=== PATIENT | female | born 1985 | race Caucasian/White ===

== ENCOUNTER 2021-04-04 07:32 | Day surgery (SDC) | payer BC ==
[~2021-04-04 07:32] MED LIST: Glycopyrrolate 0.2 MG/ML SDV ONE; Ketorolac 30 MG/ML SDV ONE; Lidocaine 2% 5 ML SDV ONE; Midazolam 1 MG/ML 2 ML SDV ONE; Ondansetron 4 MG/2 ML SDV ONE; Propofol 200 MG/20 ML SDV ONE; Rocuronium Bromide 50 MG/5 ML Syringe ONE; Sugammadex Sodium 200 MG/2 ML VIAL ONE; fentaNYL 250 MCG/5 ML SDV ONE
--- NOTE | 2021-04-04 08:00 | PCM.PREANE ---
Preanesthetic Assessment - Procedure Proposed Procedure: Lap assisted Vag Hysterectomy, Cystoscopy, possible uni or Bilateral Salpingo- oophorectomy - Anesthesia/Transfusion/Family Hx Anesthesia History: Prior Anesthesia Without Reaction Transfusion History: No Prior Transfusion(s) - Review of Systems General: No Symptoms Pulmonary: No Symptoms (Asthma, smoker) Cardiovascular: No Symptoms (anemia) Gastrointestinal: No Symptoms (Chronic constipation) Neurological: No Symptoms (migraines) Other: Reports: Depression, Anxiety - Physical Assessment NPO Status Date: 04/04/21 NPO Status Time: 19:30 Height: 5 ft 3.75 in Weight: 63.957 kg ASA Class: 2 Mental Status: Alert & Oriented x3 Airway Class: Mallampati = 3 Dentition: Reports: Normal Dentition Thyro-Mental Finger Breadths: 3 Mouth Opening Finger Breadths: 3 ROM/Head Extension: Full Lungs: Clear to Auscultation, Normal Respiratory Effort Cardiovascular: Regular Rate, Regular Rhythm - Allergies Allergies/Adverse Reactions: Allergies Allergy/AdvReac Type Severity Reaction Status Date / Time No Known Allergies Allergy Verified 04/04/21 07:48 - Acknowledgements Anesthesia Type Planned: General Anesthesia Pt an Appropriate Candidate for the Planned Anesthesia: Yes Alternatives and Risks of Anesthesia Discussed w Pt/Guardian: Yes Pt/Guardian Understands and Agrees with Anesthesia Plan: Yes PreAnesthesia Questionnaire HEENT History: Reports: Other (See Below) Other HEENT History: wears glasses/contacts Cardiovascular History: Reports: None Respiratory History: Reports: Asthma Gastrointestinal History: Reports: Chronic Constipation Genitourinary History: Reports: None 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: Dysfunctional Uterine Bleeding, Endometriosis, Musculoskeletal History: Reports: Back Pain, Chronic Neurological History: Reports: Migraines Psychiatric History: Reports: Anxiety, Depression Endocrine/Metabolic History: Reports: None Hematologic History: Reports: Anemia Immunologic History: Reports: None Oncologic (Cancer) History: Reports: None Dermatologic History: Reports: Eczema - Past Surgical History Head Surgeries/Procedures: Reports: None HEENT Surgical History: Reports: Oral Surgery Cardiovascular Surgical History: Reports: None Respiratory Surgical History: Reports: None GI Surgical History: Reports: None Female Surgical History: Reports: None Endocrine Surgical History: Reports: None Neurological Surgical History: Reports: None Musculoskeletal Surgical History: Reports: None Oncologic Surgical History: Reports: None Dermatological Surgical History: Reports: None - SUBSTANCE USE Tobacco Use Status *Q: Light Tobacco User Tobacco Use Within Last Twelve Months: Cigarettes - HOME MEDS Home Medications: Home Meds ALPRAZolam [Alprazolam] 0.5 mg PO BID PRN 03/30/21 [History] Albuterol Sulfate [Proair Hfa] 2 puff INH ASDIRECTED PRN 03/30/21 [History] Amphetamine/Dextroamphetamine [Adderall XR] 30 mg PO DAILY 03/30/21 [History] Azelastine [Optivar 0.05% Ophth Soln] 1 drop EYEBOTH ASDIRECTED PRN 03/30/21 [History] Butalbit/Acetamin/Caff/Codeine [Fioricet-Cod 41-837-12-30 Cap] 1 tab PO Q4H PRN 03/30/21 [History] Escitalopram [Lexapro] 20 mg PO DAILY 03/30/21 [History] Fluocinolone Acetonide 1 applic TOP ASDIRECTED PRN 03/30/21 [History] Galcanezumab-Gnlm [Emgality Pen] 1 injection SUBCUT ASDIRECTED 03/30/21 [History] Montelukast [Singulair] 10 mg PO DAILY 03/30/21 [History] Zolpidem [Ambien] 1 tab PO BEDTIME PRN 03/30/21 [History] buPROPion HCL [Wellbutrin Xl] 300 mg PO DAILY 03/30/21 [History] levonorgestreL [Mirena] 1 device VAG ONETIME 03/30/21 [History] - CURRENT (IN HOUSE) MEDS Current Meds: Current Medications Discontinued Medications Fentanyl (Fentanyl 250 Mcg/5 Ml Sdv) Confirm Administered Dose 250 mcg .ROUTE .STK-MED ONE Stop: 04/04/21 07:25 Glycopyrrolate (Glycopyrrolate 0.2 Mg/Ml Sdv) Confirm Administered Dose 0.2 mg .ROUTE .STK-MED ONE Stop: 04/04/21 07:25 Ketorolac Tromethamine (Ketorolac 30 Mg/Ml Sdv) Confirm Administered Dose 30 mg .ROUTE .STK-MED ONE Stop: 04/04/21 07:25 Lidocaine (Lidocaine 2% 5 Ml Sdv) Confirm Administered Dose 5 ml .ROUTE .STK-MED ONE Stop: 04/04/21 07:25 Midazolam HCl (Midazolam 1 Mg/Ml 2 Ml Sdv) Confirm Administered Dose 2 mg .ROUTE .STK-MED ONE Stop: 04/04/21 07:24 Ondansetron HCl (Ondansetron 4 Mg/2 Ml Sdv) Confirm Administered Dose 4 mg .ROUTE .STK-MED ONE Stop: 04/04/21 07:25 Propofol (Propofol 200 Mg/20 Ml Sdv) Confirm Administered Dose 200 mg .ROUTE .[employer]-MED ONE Stop: 04/04/21 07:24 Rocuronium Jensen (Rocuronium Jensen 50 Mg/5 Ml Syringe) Confirm Administered Dose 50 mg .ROUTE .[employer]-MED ONE Stop: 04/04/21 07:25 Sugammadex Sodium (Sugammadex Sodium 200 Mg/2 Ml Vial) Confirm Administered Dose 200 mg .ROUTE .[employer]-MED ONE Stop: 04/04/21 07:25
[2021-04-04] MEDS ORDERED: Ondansetron 4 MG/2 ML SDV IVPUSH PRN ×2 (08:15→11:23)
[2021-04-04] MEDS ORDERED: Metoclopramide 10 MG/2 ML SDV IVPUSH PRN (08:15)
[2021-04-04] MEDS ORDERED: HYDROmorphone 1 MG/ML Syringe IVPUSH PRN (08:15)
[2021-04-04] MEDS ORDERED: Naloxone 0.4 MG/ML SDV IVPUSH PRN (08:15)
[2021-04-04] MEDS ORDERED: Albuterol 0.083% 2.5 MG/3 ML Neb Soln NEB PRN (08:15)
[2021-04-04] MEDS ORDERED: fentaNYL 100 MCG/2 ML SDV IVPUSH PRN (08:15)
[2021-04-04] MEDS ORDERED: Morphine 2 MG/ML SYRINGE IVPUSH PRN (08:15)
[2021-04-04] MEDS ORDERED: Lactated Ringers 1,000 ML IV SCH (08:30)
[2021-04-04 08:40] LABS: BLOOD UREA NITROGEN,BUN 10 mg/dL (7.0-18.0); CHLORIDE,CL 103 mmol/L (98-107); GLUCOSE RANDOM 94 mg/dL (74-106); POTASSIUM,K 3.9 mmol/L (3.5-5.1); SODIUM,NA 141 mmol/L (136-145)
[2021-04-04] MEDS ORDERED: Bupivacaine 0.25% 10 ML SDV ONE (08:53)
[2021-04-04] MEDS ORDERED: Fluorescein 5 ML Vial ONE (08:53)
[2021-04-04] MEDS ORDERED: Methylene Blue 50 MG/10 ML Ampule ONE (08:53)
[2021-04-04] MEDS ORDERED: Octyl 2-Cyanoacrylate 1 Tube ONE (08:54)
[2021-04-04] MEDS ORDERED: Sodium Chloride 0.9% 10 ML Syringe FLUSH PRN (09:08)
[2021-04-04] MEDS ORDERED: Sodium Chloride 0.9% 2.5 ML Syringe FLUSH PRN (09:08)
[2021-04-04] MEDS ORDERED: Sodium Chloride 0.9% 10 ML SDV IV PRN (09:08)
[2021-04-04] MEDS ORDERED: Furosemide 40 MG/4 ML VIAL ONE (09:52)
[2021-04-04] MEDS ORDERED: Sodium Chloride 0.9% 20 ML ONE ×2 (09:52→11:28)
[2021-04-04] MEDS ORDERED: ceFAZolin 1 GM Vial ONE ×2 (09:52→11:28)
[2021-04-04] MEDS ORDERED: HYDROmorphone 2 MG/ML Syringe ONE ×2 (09:53→12:51)
[2021-04-04] MEDS ORDERED: Acetaminophen 1,000 MG in Premix Bag 1 BAG IV ONE (11:22)
[2021-04-04] MEDS ORDERED: Ketorolac 30 MG/ML SDV IVPUSH PRN (11:23)
[2021-04-04] MEDS ORDERED: Morphine 4 MG/ML Syringe IVPUSH PRN (11:23)
[2021-04-04] MEDS ORDERED: Acetaminophen/oxyCODONE 325-5 MG Tab PO PRN ×2 (11:23)
[2021-04-04] MEDS ORDERED: Promethazine 25 MG/ML SDV IM PRN (11:23)
--- NOTE | 2021-04-04 11:31 | PCM.POSTAN ---
POST ANESTHESIA ASSESSMENT - MENTAL STATUS Mental Status: Somnolent - VITAL SIGNS Vital Signs: Last Vital Signs Temp 97.9 F 04/04/21 07:48 Pulse 73 04/04/21 07:48 Resp 14 04/04/21 07:48 BP 136/98 H 04/04/21 07:48 Pulse Ox 99 04/04/21 07:48 - RESPIRATORY Respiratory Status: Respiratory Rate WNL, Airway Patent, O2 Saturation Stable - CARDIOVASCULAR CV Status: Pulse Rate WNL, Blood Pressure Stable - GASTROINTESTINAL GI Status: No Symptoms - PAIN Free Text/Narrative:: Resting comfortably - POST OP HYDRATION Hydration Status: Adequate & Stable
--- NOTE | 2021-04-04 11:35 | PCM.OPNOTE ---
- General Post-Op/Procedure Note Date of Surgery/Procedure: 04/04/21 Operative Procedure(s): Laparoscopic assisted vaginal hysterectomy, bilateral salpingectomy, cystoscopy Findings: Normal appearing pelvis, uterus, bilateral fallopian tubes and ovaries. Pre Op Diagnosis: Menorrhagia Post-Op Diagnosis: Menorrhagia Primary Surgeon: Mario Marie Anesthesia Provider: Cody Han Cut Off Saw Grader: Molly Katz Pathology: Uterus, bilateral fallopian tubes. Mirena IUD. EBL in mLs: 100 Complications: None Condition: Good
--- NOTE | 2021-04-04 12:01 | PCM48HPAN ---
Post Anesthesia Note - EVALUATION WITHIN 48HRS OF ANESTHETIC Vital Signs in Normal Range: Yes Patient Participated in Evaluation: Yes Respiratory Function Stable: Yes Airway Patent: Yes Cardiovascular Function Stable: Yes Hydration Status Stable: Yes Pain Control Satisfactory: Yes Nausea and Vomiting Control Satisfactory: Yes Mental Status Recovered: Yes Vital Signs: Last Vital Signs Temp 97.3 F 04/04/21 11:09 Pulse 71 04/04/21 11:49 Resp 10 L 04/04/21 11:49 BP 151/81 H 04/04/21 11:49 Pulse Ox 95 04/04/21 11:49 - COMMENTS/OBSERVATIONS Free Text/Narrative:: Pt doing well post-op. VSS. No apparent anesthetic complications. Dr. Cody Han
[2021-04-04] MEDS ORDERED: Albumin 5% 250 ML ONE (12:45)
[2021-04-04] MEDS ORDERED: Glycopyrrolate 0.2 MG/ML SDV ONE (13:02)
[2021-04-04] MEDS ORDERED: Phenylephrine 1% 10 MG/ML SDV ONE (13:05)
[2021-04-04] MEDS ORDERED: Lidocaine 2% 5 ML SDV ONE (13:40)
--- NOTE | 2021-04-05 00:07 | PCM.SN.2 ---
- Free Text/Narrative Note: Patient seen at bedside around 1745. She is feeling well and ambulating in the gates. Reports pain is minimal 2/10, had only used toradol and tylenol. She tolerated PO and passed flatus. Minimal vaginal bleeding. Chua in place with good urine output. Patient expressed desire to go home tonight. Since she is doing well and meeting postop milestones, will remove chua now and plan for discharge if she is able to void. Reviewed postop care instructions. Sent script for [place], alternating with ibuprofen for pain. Time Documentation
--- NOTE | 2021-04-05 00:36 | OR ---
SURGEON: Mario Marie MD DATE OF PROCEDURE: 04/04/2021 INDICATION FOR PROCEDURE: A 35-year-old, G1, P1, presenting with scheduled hysterectomy. The patient has a long history of menorrhalgia since her teens. She has tried multiple hormonal treatments. She had Mirena IUD for the past 9 years, was controlling her bleeding well. She has decided that she has completed her family and would like to stop using hormonal methods to control bleeding and desires definitive management with hysterectomy. PREOPERATIVE DIAGNOSIS: Menorrhagia. POSTOPERATIVE DIAGNOSIS: Menorrhagia. PROCEDURE PERFORMED: Laparoscopic-assisted vaginal hysterectomy, bilateral salpingectomy, and cystoscopy. SEED CUTTER: Molly Katz M.D. ANESTHESIOLOGIST: Dr. Cody Han. ANESTHESIA: General anesthesia. FINDINGS: Normal-appearing pelvis. Normal sized uterus, normal-appearing bilateral fallopian tubes and ovaries. ESTIMATED BLOOD LOSS: 100 mL. DESCRIPTION OF PROCEDURE: Informed consent was obtained. The risks of procedure were discussed including bleeding, infection, DVTs, and injury to surrounding organs including bladder, bowel, and ureters. Questions were answered and consent signed. The patient was brought to the operating room. She was given SCDs and 2 g of Ancef for infection prophylaxis. She underwent general anesthesia with no complications. Her legs were placed in dorsal lithotomy position and supported using stirrups. She was prepped and draped in the usual sterile fashion using chlorhexidine and Betadine. A Baltazar catheter was placed and bladder filled with methylene blue. Bimanual exam showed a small anteverted uterus with no adnexal masses. A bivalved speculum was placed in the posterior vaginal vault. The vagina and cervix were normal appearing without any lesions or masses. The anterior lip of the cervix was grasped with an Allis clamp. The cervix was serially dilated with Hegar dilators. A HUMI uterine manipulator was placed in the uterine cavity and attached by insufflating the balloon. Attention was then turned to the abdominal portion of the procedure. A 5 mm incision was made at the umbilicus after injecting of 3 mL of 0.25% Marcaine. A Veress needle for abdominal entry, intraperitoneal location confirmed with low opening pressure and saline drop test. CO2 gas was initiated and pneumoperitoneum to 15 mmHg was achieved. There was not enough insufflation to visualize the pelvis, pneumoperitoneum was increased to 17mmHg. No visceral or vascular injury was seen at the entry site. The survey of the abdomen and pelvis noted normal sized uterus, bilateral fallopian tubes and ovaries. A 5 mm trocar was then placed in the right lower quadrant under laparoscopic visualization, followed by another 5 mm trocar in left lower quadrant. The patient was placed in Trendelenburg. A blunt grasper was used to sweep the bowel away from the operative site. The left fallopian tube was grasped with atraumatic grasper and followed out to the fimbriated end. The fallopian tube was from the mesosalpinx with a LigaSure device careful to avoid the ureters, which were visualized and noted to be pulsating. The utero-ovarian artery was then ligated. The round ligament was cauterized and transected. The broad ligament was carefully dissected toward the cervix. A bladder flap was made by gently dissecting the anterior peritoneum and the bladder from the underlying pubocervical fascia. The uterine artery was then cauterized and transected with good hemostasis. The same steps were performed on the right side of the uterus without complications. The vaginal portion of the hysterectomy was then performed. A weighted speculum was placed in the posterior vaginal vault. The cervix was grasped with grasped with two Nicolette clamps. A circumferential incision was made at the cervicovaginal junction with the cautery. The vagina was bluntly dissected away from the cervix circumferentially. The posterior peritoneum was visualized, and the posterior sac entered with Hernandez scissors. The opening was stretched bluntly. A gooseneck speculum was placed in the posterior cul-de-sac. The bladder peritoneum was dissected in a similar fashion and the peritoneum also entered anteriorly. The bowel was retracted away by placing a right angle retractor anteriorly. The uterosacral ligaments were visualized, clamped with Jessica clamps, then cut and ligated with 2-0 Vicryl suture bilaterally. The fundus of uterus was palpated and there was only a small remaining pedicle bilaterally. The pedicle was grasped with Jessica clamps and cut. The uterus was freed up entirely and brought out into the vagina. The pedicle was secured with 2-0 Vicryl suture. Hemostasis of all pedicles were carefully examined. The lateral vaginal cuff was attached to the uterosacral ligaments with sutures that were previously used to secure the uterosacrals for suspension. A 0 Polysorb suture was then used to close the vaginal mucosa vertically in a running locking fashion. Hemostasis was confirmed after the procedure. A cystoscopy was then performed after injection of fluorescein and Lasix. The bladder was noted to be intact with no signs of injury. Bilateral ureteral jets were seen with good efflux of urine. Attention was again turned to the abdomen. Pneumoperitoneum was reestablished. The pelvis was irrigated. The vaginal cuff and pedicles were examined. Some small areas of the vaginal cuff were noted to have light bleeding. The LigaSure device was used to cauterize areas of bleeding. Hemostasis was confirmed. The pneumoperitoneum was decreased to 5 mmHg, and hemostasis again confirmed. The pneumoperitoneum was then released, and all instruments were removed. The skin incisions were closed with 4-0 Monocryl in a subcuticular fashion. Dressing was placed over the incisions. The patient was awoken from anesthesia without difficulty. She was taken to the recovery room in stable condition. ZACHERY THAKKAR /[id number] MTDD
== END 2021-04-04 20:00 | disposition home or self-care (01) ==
LOC: MW.SDS 07:32 → MW.OB 12:35 → MW.SDS 20:00
PROVIDERS: ATTEND Obstetrics & Gynecology
DX: N87.9 Dysplasia of cervix uteri, unspecified (principal); N88.8 Other specified noninflammatory disorders of cervix uteri; D64.9 Anemia, unspecified; F17.210 Nicotine dependence, cigarettes, uncomplicated; Z79.899 Other long term (current) drug therapy
CPT/HCPCS: 36415; 58552; 80048; 81025; 85025; 86850; 86900; 86901; 88307; J0131; J0690; J1170; J1885; J1940; J2250; J2270; J2370; J2704; J3010; J3490; J7030; J7120; P9045; 00944; A9270-GY; J2405

== ENCOUNTER 2021-04-16 11:18 | Observation (INO) | payer BC ==
[2021-04-16] MEDS ORDERED: Sodium Chloride 0.9% 2.5 ML Syringe FLUSH PRN ×2 (12:08→16:42)
[2021-04-16] MEDS ORDERED: Sodium Chloride 0.9% 10 ML Syringe FLUSH PRN ×2 (12:08→16:42)
[2021-04-16] MEDS ORDERED: Sodium Chloride 0.9% 1,000 ML IV ONE (12:08)
--- NOTE | 2021-04-16 12:10 | EDM.PDOC ---
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 Marie. She started spotting blood per vagina 6 days later. She has a very gradual crescendo increased bleeding until over the last 2 days she is soaking 1 pad every hour which is heavier than any menstrual period now she is lightheaded and orthostatic. She gets diaphoretic. She has pain when she is does not take her pain medicine which she has been taking since her hysterectomy. She is not on a blood thinner does not take aspirin or anti- inflammatories and has no family history of blood dyscrasia. Review of systems: As per history of present illness and below otherwise all systems reviewed and negative. Past medical history: As per history of present illness and as reviewed below otherwise noncontributory. Surgical history: As per history of present illness and as reviewed below otherwise noncontributory. Social history: No reported history of drug or alcohol abuse. Family history: As per history of present illness and as reviewed below otherwise noncontributory. Physical exam: Constitutional - well developed, well-nourished and in no acute distress HEENT - normocephalic, no evidence of trauma - external nose and mouth normal - no mass in neck and no JVD - mucosae moist EYES - full EOM, PERRL, no icterus - no evidence of inflammation, injection, or drainage Respiratory - no respiratory distress, equal bilateral expansion, lungs clear to auscultation and no abnormal lung sounds Cardiovascular - Regular Rhythm with S1 and S2 appreciated and no murmur, gallop or rub. GI - abdomen soft without distension or organomegaly - normal bowel sounds - no guard or rebound Musculoskeletal no gross deformity of long bones or joints - no tenderness, swelling or edema Neurologic - Alert and oriented times four - CN II-XII grossly intact - motor sensory and coordination symmetrically normal Psychiatric - appropriate mood and affect with normal thought content Hematologic - No petechiae or purpura - mucosa appropriate color and sclera not pale - normal nail bed color and refill Integument - no rash or evidence of trauma - normal turgor Diagnostics: [] Therapeutics: [] Impression: [] Plan: [] Definitive disposition and diagnosis as appropriate pending reevaluation and review of above. lower abdominal Pain Score (Numeric/FACES): 6 - Related Data Allergies Allergy/AdvReac Type Severity Reaction Status Date / Time No Known Allergies Allergy Verified 04/16/21 12:00 Home Meds: Home Meds ALPRAZolam [Alprazolam] 0.5 mg PO BID PRN 03/30/21 [History] Albuterol Sulfate [Proair Hfa] 2 puff INH ASDIRECTED PRN 03/30/21 [History] Amphetamine/Dextroamphetamine [Adderall XR] 30 mg PO DAILY 03/30/21 [History] Azelastine [Optivar 0.05% Ophth Soln] 1 drop EYEBOTH ASDIRECTED PRN 03/30/21 [History] Butalbit/Acetamin/Caff/Codeine [Fioricet-Cod 69-083-93-30 Cap] 1 tab PO Q4H PRN 03/30/21 [History] Escitalopram [Lexapro] 20 mg PO DAILY 03/30/21 [History] Fluocinolone Acetonide 1 applic TOP ASDIRECTED PRN 03/30/21 [History] Galcanezumab-Gnlm [Emgality Pen] 1 injection SUBCUT ASDIRECTED 03/30/21 [History] Montelukast [Singulair] 10 mg PO DAILY 03/30/21 [History] Zolpidem [Ambien] 1 tab PO BEDTIME PRN 03/30/21 [History] buPROPion HCL [Wellbutrin Xl] 300 mg PO DAILY 03/30/21 [History] Hydrocodone/Acetaminophen [HYDROcodone-Acetaminophen 5-325 MG] 1 each PO Q6H PRN #12 tab 04/04/21 [Rx] Phenazopyridine [Pyridium] 100 mg PO TID 04/16/21 [History] Sulfamethoxazole/Trimethoprim [Bactrim Ds Tablet] 1 mg PO BID 04/16/21 [History] Past Medical History HEENT History: Reports: Other (See Below) Other HEENT History: wears glasses/contacts Cardiovascular History: Reports: None Respiratory History: Reports: Asthma Gastrointestinal History: Reports: Chronic Constipation Genitourinary History: Reports: None 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: Dysfunctional Uterine Bleeding, Endometriosis, Musculoskeletal History: Reports: Back Pain, Chronic Neurological History: Reports: Migraines Psychiatric History: Reports: Anxiety, Depression Endocrine/Metabolic History: Reports: None Hematologic History: Reports: Anemia Immunologic History: Reports: None Oncologic (Cancer) History: Reports: None Dermatologic History: Reports: Eczema - Infectious Disease History Infectious Disease History: Reports: Chicken Pox, Shingles - Past Surgical History Head Surgeries/Procedures: Reports: None HEENT Surgical History: Reports: Oral Surgery Cardiovascular Surgical History: Reports: None Respiratory Surgical History: Reports: None GI Surgical History: Reports: None Female Surgical History: Reports: None Endocrine Surgical History: Reports: None Neurological Surgical History: Reports: None Musculoskeletal Surgical History: Reports: None Oncologic Surgical History: Reports: None Dermatological Surgical History: Reports: None ED ROS GENERAL - Review of Systems Review Of Systems: Comprehensive ROS is negative, except as noted in HPI. ED EXAM, GENERAL - Physical Exam Exam: See Below Free Text/Narrative:: My physical exam is in the HPI Course - Vital Signs Text/Narrative:: 12:44 PM hemoglobin was 13+ and the patient had a baseline of 16.1 on [address] Katz and she felt like we should do a speculum exam and because the white count a CT for abscess. She wanted to be called back if there is a significant clot or significant bleeding in the vagina. Otherwise she wanted her to follow-up in the clinic. 1302 hrs. pelvic exam-BUS normal-speculum exam there is minimal bleeding but certainly no arterial bleeding and no clot in the vagina. [address] Katz came to evaluate the patient after CT revealed a large abscess in the pelvis. She feels she can drain it in the operating room here. Patient agrees. Last Recorded V/S: Last Vital Signs Temp 36.1 C 04/16/21 12:03 Pulse 80 04/16/21 13:37 Resp 20 04/16/21 12:03 BP 119/66 04/16/21 13:37 Pulse Ox 99 04/16/21 13:37 Orthostatic Blood Pressure [ 122/82 Standing] Orthostatic Blood Pressure [ 126/88 Sitting] Orthostatic Blood Pressure [ 116/80 Supine] - Orders/Labs/Meds Orders: Active Orders 24 hr Category Date Time Status Admission Status [Patient Status] [ADT] Stat ADT 04/16/21 14:49 Ordered Communication Order [RC] STAT Care 04/16/21 12:45 Active Orthostatic Vital Signs [RC] ASDIRECTED Care 04/16/21 13:03 Active CORONAVIRUS COVID-19 LISETH [MOLEC] Stat Lab 04/16/21 14:00 Received Sodium Chloride 0.9% [Saline Flush] Med 04/16/21 12:08 Active 10 ml FLUSH ASDIRECTED PRN Sodium Chloride 0.9% [Saline Flush] Med 04/16/21 12:08 Active 2.5 ml FLUSH ASDIRECTED PRN Saline Lock Insert [OM.PC] Stat Oth 04/16/21 12:08 Ordered Medication Orders Sodium Chloride (Sodium Chloride 0.9% 10 Ml Syringe) 10 ml FLUSH ASDIRECTED PRN PRN Reason: Keep Vein Open Last Admin: 04/16/21 12:16 Dose: 10 ml Documented by: CASPER Sodium Chloride (Sodium Chloride 0.9% 2.5 Ml Syringe) 2.5 ml FLUSH ASDIRECTED PRN PRN Reason: Keep Vein Open Last Admin: 04/16/21 12:16 Dose: 2.5 ml Documented by: CASPER Labs: Laboratory Tests 04/16/21 04/16/21 04/16/21 Range/Units 12:03 12:03 12:03 WBC 16.13 H (4.0-11.0) K/uL RBC 4.28 L (4.30-5.90) M/uL Hgb 13.5 (12.0-16.0) g/dL Hct 39.8 (36.0-46.0) % MCV 93.0 (80.0-98.0) fL MCH 31.5 (27.0-32.0) pg MCHC 33.9 (31.0-37.0) g/dL RDW Std Deviation 42.3 (28.0-62.0) fl RDW Coeff of Maddi 13 (11.0-15.0) % Plt Count 565 H (150-400) K/uL MPV 9.10 (7.40-12.00) fL Neut % (Auto) 78.4 (48.0-80.0) % Lymph % (Auto) 11.0 L (16.0-40.0) % [place] % (Auto) 9.3 (0.0-15.0) % Eos % (Auto) 1.1 (0.0-7.0) % Baso % (Auto) 0.2 (0.0-1.5) % Neut # (Auto) 12.6 H (1.4-5.7) K/uL Lymph # (Auto) 1.8 (0.6-2.4) K/uL [place] # (Auto) 1.5 H (0.0-0.8) K/uL Eos # (Auto) 0.2 (0.0-0.7) K/uL Baso # (Auto) 0.0 (0.0-0.1) K/uL Nucleated RBC % 0.0 /100WBC Nucleated RBCs # 0 K/uL INR 1.06 APTT 28.2 (18.6-31.3) SEC Sodium 136 (136-145) mmol/L Potassium 4.5 (3.5-5.1) mmol/L Chloride 98 (98-107) mmol/L Carbon Dioxide 27.9 (21.0-32.0) mmol/L BUN 7 (7.0-18.0) mg/dL Creatinine 1.1 H (0.6-1.0) mg/dL Est Cr Clr Drug Dosing 62.23 mL/min Estimated GFR (MDRD) 56.9 ml/min Glucose 98 (74-106) mg/dL Calcium 8.8 (8.5-10.1) mg/dL Total Bilirubin 0.8 (0.2-1.0) mg/dL AST 17 (15-37) IU/L ALT 19 (14-63) IU/L Alkaline Phosphatase 95 (46-116) U/L Total Protein 7.5 (6.4-8.2) g/dL Albumin 3.5 (3.4-5.0) g/dL Globulin 4.0 (2.6-4.0) g/dL Albumin/Globulin Ratio 0.9 (0.9-1.6) Blood Type Antibody Screen 04/16/21 Range/Units 12:25 WBC (4.0-11.0) K/uL RBC (4.30-5.90) M/uL Hgb (12.0-16.0) g/dL Hct (36.0-46.0) % MCV (80.0-98.0) fL MCH (27.0-32.0) pg MCHC (31.0-37.0) g/dL RDW Std Deviation (28.0-62.0) fl RDW Coeff of Maddi (11.0-15.0) % Plt Count (150-400) K/uL MPV (7.40-12.00) fL Neut % (Auto) (48.0-80.0) % Lymph % (Auto) (16.0-40.0) % [place] % (Auto) (0.0-15.0) % Eos % (Auto) (0.0-7.0) % Baso % (Auto) (0.0-1.5) % Neut # (Auto) (1.4-5.7) K/uL Lymph # (Auto) (0.6-2.4) K/uL [place] # (Auto) (0.0-0.8) K/uL Eos # (Auto) (0.0-0.7) K/uL Baso # (Auto) (0.0-0.1) K/uL Nucleated RBC % /100WBC Nucleated RBCs # K/uL INR APTT (18.6-31.3) SEC Sodium (136-145) mmol/L Potassium (3.5-5.1) mmol/L Chloride (98-107) mmol/L Carbon Dioxide (21.0-32.0) mmol/L BUN (7.0-18.0) mg/dL Creatinine (0.6-1.0) mg/dL Est Cr Clr Drug Dosing mL/min Estimated GFR (MDRD) ml/min Glucose (74-106) mg/dL Calcium (8.5-10.1) mg/dL Total Bilirubin (0.2-1.0) mg/dL AST (15-37) IU/L ALT (14-63) IU/L Alkaline Phosphatase (46-116) U/L Total Protein (6.4-8.2) g/dL Albumin (3.4-5.0) g/dL Globulin (2.6-4.0) g/dL Albumin/Globulin Ratio (0.9-1.6) Blood Type B POSITIVE Antibody Screen NEGATIVE Meds: Medications Generic Name Dose Route Start Last Admin Trade Name Freq PRN Reason Stop Dose Admin Sodium Chloride 10 ml 04/16/21 12:08 04/16/21 12:16 Sodium Chloride 0.9% 10 Ml Syringe FLUSH 10 ml ASDIRECTED PRN Administration Keep Vein Open Sodium Chloride 2.5 ml 04/16/21 12:08 04/16/21 12:16 Sodium Chloride 0.9% 2.5 Ml Syringe FLUSH 2.5 ml ASDIRECTED PRN Administration Keep Vein Open Discontinued Medications Generic Name Dose Route Start Last Admin Trade Name Bharti PRN Reason Stop Dose Admin Acetaminophen 650 mg 04/16/21 13:12 04/16/21 13:15 Acetaminophen 325 Mg Tab PO 04/16/21 13:13 Not Given NOW ONE Diphenhydramine HCl 25 mg 04/16/21 13:11 04/16/21 13:15 Diphenhydramine 50 Mg/Ml Sdv IVPUSH 04/16/21 13:12 Not Given ONETIME ONE Sodium Chloride 1,000 mls @ 1,000 mls/hr 04/16/21 12:08 04/16/21 12:14 Normal Saline IV 04/16/21 13:07 1,000 mls/hr .Bolus ONE Administration Methylprednisolone Sodium Succinate 125 mg 04/16/21 13:12 04/16/21 13:15 Methylprednisolone Sodium Succinate 125 Mg/2 Ml Sdv IVPUSH 04/16/21 13:13 Not Given ONETIME ONE Metoclopramide HCl 10 mg 04/16/21 13:11 04/16/21 13:15 Metoclopramide 10 Mg/2 Ml Sdv IVPUSH 04/16/21 13:12 Not Given ONETIME ONE Departure - Departure Time of Disposition: 14:51 Disposition: Refer to Observation Condition: Good Clinical Impression: Post-op bleeding, Pelvic abscess - Discharge Information Referrals: Cheryl Fung NP [Primary Care Provider] - Forms: ED Department Discharge Additional Instructions: If you become more dizzy dizzy more pale more sweaty or feel more like you are going to pass out return for repeat blood count. Otherwise rest and follow-up with PMD as scheduled in 2 days. [facility] [address] [place] [id number] My discharge Sepsis Event Note (ED) - Focused Exam Vital Signs: Vital Signs Temp Pulse Resp BP Pulse Ox 04/16/21 13:37 80 119/66 99 04/16/21 12:03 36.1 C 90 20 138/91 H 98 - My Orders Last 24 Hours: My Active Orders 04/16/21 12:08 Sodium Chloride 0.9% [Saline Flush] 10 ml FLUSH ASDIRECTED PRN Sodium Chloride 0.9% [Saline Flush] 2.5 ml FLUSH ASDIRECTED PRN Saline Lock Insert [OM.PC] Stat 04/16/21 12:45 Communication Order [RC] STAT 04/16/21 13:03 Orthostatic Vital Signs [RC] ASDIRECTED 04/16/21 14:00 CORONAVIRUS COVID-19 LISETH [MOLEC] Stat 04/16/21 14:49 Admission Status [Patient Status] [ADT] Stat - Assessment/Plan Last 24 Hours: My Active Orders 04/16/21 12:08 Sodium Chloride 0.9% [Saline Flush] 10 ml FLUSH ASDIRECTED PRN Sodium Chloride 0.9% [Saline Flush] 2.5 ml FLUSH ASDIRECTED PRN Saline Lock Insert [OM.PC] Stat 04/16/21 12:45 Communication Order [RC] STAT 04/16/21 13:03 Orthostatic Vital Signs [RC] ASDIRECTED 04/16/21 14:00 CORONAVIRUS COVID-19 LISETH [MOLEC] Stat 04/16/21 14:49 Admission Status [Patient Status] [ADT] Stat
[2021-04-16 12:46] LABS: CARBON DIOXIDE,CO2 27.9 mmol/L (21.0-32.0); POTASSIUM,K 4.5 mmol/L (3.5-5.1)
[2021-04-16] MEDS ORDERED: diphenhydrAMINE 50 MG/ML SDV IVPUSH ONE (13:11)
[2021-04-16] MEDS ORDERED: Metoclopramide 10 MG/2 ML SDV IVPUSH ONE (13:11)
[2021-04-16] MEDS ORDERED: Acetaminophen 325 MG Tab PO ONE (13:12)
[2021-04-16] MEDS ORDERED: methylPREDNISolone Sodium Succinate 125 MG/2 ML SDV IVPUSH ONE (13:12)
--- NOTE | 2021-04-16 13:45 | CT ---
Indication: Bleeding after recent hysterectomy. Technique: CT abdomen and pelvis with 75 cc Isovue 370 IV contrast Comparison: None Findings: A fluid collection in the cul de sac with enhancing rim is consistent with a pelvic abscess. This is relatively large measuring 10 x 6 x 5 cm as visualized on the axial series 201, image 50. Unremarkable urinary bladder. Visualized GI tract is within normal limits. No significant osseous abnormality. Impression: Relatively large abscess in the uterine bed post hysterectomy. Please note that all CT scans at this facility use dose modulation, iterative reconstruction, and/or weight-based dosing when appropriate to reduce radiation dose to as low as reasonably achievable. Dictated by Richardson Acevedo MD @ 04/16/2021 1:42:56 PM (Electronically Signed)
[2021-04-16] MEDS ORDERED: Iopamidol 755 MG/ML 500 ML Multipack Bottle IVPUSH ONE (15:17)
[2021-04-16] MEDS ORDERED: Propofol 200 MG/20 ML SDV ONE (15:21)
[2021-04-16] MEDS ORDERED: Lidocaine 2% 100 MG/5 ML Syringe ONE (15:22)
[2021-04-16] MEDS ORDERED: fentaNYL 100 MCG/2 ML SDV ONE (15:22)
[2021-04-16] MEDS ORDERED: Ondansetron 4 MG/2 ML SDV ONE (15:26)
[2021-04-16] MEDS ORDERED: Bupivacaine 0.25% 10 ML SDV ONE (15:29)
[2021-04-16] MEDS ORDERED: Morphine 4 MG/ML Syringe ONE (16:02)
[2021-04-16] MEDS ORDERED: HYDROmorphone 2 MG/ML Syringe ONE (16:26)
--- NOTE | 2021-04-16 16:32 | PCM48HPAN ---
Post Anesthesia Note - EVALUATION WITHIN 48HRS OF ANESTHETIC Vital Signs in Normal Range: Yes Patient Participated in Evaluation: Yes Respiratory Function Stable: Yes Airway Patent: Yes Cardiovascular Function Stable: Yes Hydration Status Stable: Yes Pain Control Satisfactory: Yes Nausea and Vomiting Control Satisfactory: Yes Mental Status Recovered: Yes Vital Signs: Last Vital Signs Temp 36.1 C 04/16/21 12:03 Pulse 87 04/16/21 14:07 Resp 20 04/16/21 12:03 BP 121/74 04/16/21 14:07 Pulse Ox 98 04/16/21 14:07 Orthostatic Blood Pressure [ 122/82 Standing] Orthostatic Blood Pressure [ 126/88 Sitting] Orthostatic Blood Pressure [ 116/80 Supine]
--- NOTE | 2021-04-16 16:32 | PCM.POSTAN ---
POST ANESTHESIA ASSESSMENT - MENTAL STATUS Mental Status: Alert, Oriented - VITAL SIGNS Vital Signs: Last Vital Signs Temp 36.1 C 04/16/21 12:03 Pulse 87 04/16/21 14:07 Resp 20 04/16/21 12:03 BP 121/74 04/16/21 14:07 Pulse Ox 98 04/16/21 14:07 Orthostatic Blood Pressure [ 122/82 Standing] Orthostatic Blood Pressure [ 126/88 Sitting] Orthostatic Blood Pressure [ 116/80 Supine] - RESPIRATORY Respiratory Status: Respiratory Rate WNL - CARDIOVASCULAR CV Status: Pulse Rate WNL - GASTROINTESTINAL GI Status: No Symptoms - POST OP HYDRATION Hydration Status: Adequate & Stable
--- NOTE | 2021-04-16 16:33 | PCM.PREANE ---
Preanesthetic Assessment - Anesthesia/Transfusion/Family Hx Anesthesia History: Prior Anesthesia Without Reaction Family History of Anesthesia Reaction: No Transfusion History: No Prior Transfusion(s) - Review of Systems General: No Symptoms Pulmonary: No Symptoms Cardiovascular: No Symptoms Gastrointestinal: No Symptoms Neurological: No Symptoms Other: Reports: None - Physical Assessment Vital Signs: Last Vital Signs Temp 36.1 C 04/16/21 12:03 Pulse 87 04/16/21 14:07 Resp 20 04/16/21 12:03 BP 121/74 04/16/21 14:07 Pulse Ox 98 04/16/21 14:07 Orthostatic Blood Pressure [ 122/82 Standing] Orthostatic Blood Pressure [ 126/88 Sitting] Orthostatic Blood Pressure [ 116/80 Supine] Height: 1.63 m Weight: 64.41 kg ASA Class: 2E Mental Status: Alert & Oriented x3 Airway Class: Mallampati = 4 Dentition: Reports: Normal Dentition ROM/Head Extension: Full Lungs: Clear to Auscultation, Normal Respiratory Effort Cardiovascular: Regular Rate, Regular Rhythm - Lab Values: Laboratory Last Values WBC 16.13 K/uL (4.0-11.0) H 04/16/21 12:03 RBC 4.28 M/uL (4.30-5.90) L 04/16/21 12:03 Hgb 13.5 g/dL (12.0-16.0) 04/16/21 12:03 Hct 39.8 % (36.0-46.0) 04/16/21 12:03 MCV 93.0 fL (80.0-98.0) 04/16/21 12:03 MCH 31.5 pg (27.0-32.0) 04/16/21 12:03 MCHC 33.9 g/dL (31.0-37.0) 04/16/21 12:03 RDW Std Deviation 42.3 fl (28.0-62.0) 04/16/21 12:03 RDW Coeff of Maddi 13 % (11.0-15.0) 04/16/21 12:03 Plt Count 565 K/uL (150-400) H 04/16/21 12:03 MPV 9.10 fL (7.40-12.00) 04/16/21 12:03 Neut % (Auto) 78.4 % (48.0-80.0) 04/16/21 12:03 Lymph % (Auto) 11.0 % (16.0-40.0) L 04/16/21 12:03 [place] % (Auto) 9.3 % (0.0-15.0) 04/16/21 12:03 Eos % (Auto) 1.1 % (0.0-7.0) 04/16/21 12:03 Baso % (Auto) 0.2 % (0.0-1.5) 04/16/21 12:03 Neut # (Auto) 12.6 K/uL (1.4-5.7) H 04/16/21 12:03 Lymph # (Auto) 1.8 K/uL (0.6-2.4) 04/16/21 12:03 [place] # (Auto) 1.5 K/uL (0.0-0.8) H 04/16/21 12:03 Eos # (Auto) 0.2 K/uL (0.0-0.7) 04/16/21 12:03 Baso # (Auto) 0.0 K/uL (0.0-0.1) 04/16/21 12:03 Nucleated RBC % 0.0 /100WBC 04/16/21 12:03 Nucleated RBCs # 0 K/uL 04/16/21 12:03 INR 1.06 04/16/21 12:03 APTT 28.2 SEC (18.6-31.3) 04/16/21 12:03 Sodium 136 mmol/L (136-145) 04/16/21 12:03 Potassium 4.5 mmol/L (3.5-5.1) 04/16/21 12:03 Chloride 98 mmol/L (98-107) 04/16/21 12:03 Carbon Dioxide 27.9 mmol/L (21.0-32.0) 04/16/21 12:03 BUN 7 mg/dL (7.0-18.0) 04/16/21 12:03 Creatinine 1.1 mg/dL (0.6-1.0) H 04/16/21 12:03 Est Cr Clr Drug Dosing 62.23 mL/min 04/16/21 12:03 Estimated GFR (MDRD) 56.9 ml/min 04/16/21 12:03 Glucose 98 mg/dL (74-106) 04/16/21 12:03 Calcium 8.8 mg/dL (8.5-10.1) 04/16/21 12:03 Total Bilirubin 0.8 mg/dL (0.2-1.0) 04/16/21 12:03 AST 17 IU/L (15-37) 04/16/21 12:03 ALT 19 IU/L (14-63) 04/16/21 12:03 Alkaline Phosphatase 95 U/L (46-116) 04/16/21 12:03 Total Protein 7.5 g/dL (6.4-8.2) 04/16/21 12:03 Albumin 3.5 g/dL (3.4-5.0) 04/16/21 12:03 Globulin 4.0 g/dL (2.6-4.0) 04/16/21 12:03 Albumin/Globulin Ratio 0.9 (0.9-1.6) 04/16/21 12:03 SARS-CoV-2 RNA (LISETH) NEGATIVE (NEGATIVE) 04/16/21 14:00 Blood Type B POSITIVE 04/16/21 12:25 Antibody Screen NEGATIVE 04/16/21 12:25 - Allergies Allergies/Adverse Reactions: Allergies Allergy/AdvReac Type Severity Reaction Status Date / Time No Known Allergies Allergy Verified 04/16/21 12:00 - Acknowledgements Anesthesia Type Planned: General Anesthesia Pt an Appropriate Candidate for the Planned Anesthesia: Yes Alternatives and Risks of Anesthesia Discussed w Pt/Guardian: Yes Pt/Guardian Understands and Agrees with Anesthesia Plan: Yes PreAnesthesia Questionnaire HEENT History: Reports: Other (See Below) Other HEENT History: wears glasses/contacts Cardiovascular History: Reports: None Respiratory History: Reports: Asthma Gastrointestinal History: Reports: Chronic Constipation Genitourinary History: Reports: None 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: Dysfunctional Uterine Bleeding, Endometriosis, Musculoskeletal History: Reports: Back Pain, Chronic Neurological History: Reports: Migraines Psychiatric History: Reports: Anxiety, Depression Endocrine/Metabolic History: Reports: None Hematologic History: Reports: Anemia Immunologic History: Reports: None Oncologic (Cancer) History: Reports: None Dermatologic History: Reports: Eczema - Infectious Disease History Infectious Disease History: Reports: Chicken Pox, Shingles - Past Surgical History Head Surgeries/Procedures: Reports: None HEENT Surgical History: Reports: Oral Surgery Cardiovascular Surgical History: Reports: None Respiratory Surgical History: Reports: None GI Surgical History: Reports: None Female Surgical History: Reports: None, Hysterectomy Endocrine Surgical History: Reports: None Neurological Surgical History: Reports: None Musculoskeletal Surgical History: Reports: None Oncologic Surgical History: Reports: None Dermatological Surgical History: Reports: None - SUBSTANCE USE Tobacco Use Status *Q: Current Every Day Tobacco User Tobacco Use Within Last Twelve Months: Cigarettes Recreational Drug Use History: No - HOME MEDS Home Medications: Home Meds ALPRAZolam [Alprazolam] 0.5 mg PO BID PRN 03/30/21 [History] Albuterol Sulfate [Proair Hfa] 2 puff INH ASDIRECTED PRN 03/30/21 [History] Amphetamine/Dextroamphetamine [Adderall XR] 30 mg PO DAILY 03/30/21 [History] Azelastine [Optivar 0.05% Ophth Soln] 1 drop EYEBOTH ASDIRECTED PRN 03/30/21 [History] Butalbit/Acetamin/Caff/Codeine [Fioricet-Cod 63-023-19-30 Cap] 1 tab PO Q4H PRN 03/30/21 [History] Escitalopram [Lexapro] 20 mg PO DAILY 03/30/21 [History] Fluocinolone Acetonide 1 applic TOP ASDIRECTED PRN 03/30/21 [History] Galcanezumab-Gnlm [Emgality Pen] 1 injection SUBCUT ASDIRECTED 03/30/21 [History] Montelukast [Singulair] 10 mg PO DAILY 03/30/21 [History] Zolpidem [Ambien] 1 tab PO BEDTIME PRN 03/30/21 [History] buPROPion HCL [Wellbutrin Xl] 300 mg PO DAILY 03/30/21 [History] Hydrocodone/Acetaminophen [HYDROcodone-Acetaminophen 5-325 MG] 1 each PO Q6H PRN #12 tab 04/04/21 [Rx] Phenazopyridine [Pyridium] 100 mg PO TID 04/16/21 [History] Sulfamethoxazole/Trimethoprim [Bactrim Ds Tablet] 1 mg PO BID 04/16/21 [History] - CURRENT (IN HOUSE) MEDS Current Meds: Current Medications Piperacillin Sod/Tazobactam (Sod 3.375 gm/ Sodium Chloride) 50 mls @ 100 mls/hr IV Q6H MARY Metronidazole 500 mg/ Premix 100 mls @ 100 mls/hr IV Q8H MARY Sodium Chloride (Sodium Chloride 0.9% 10 Ml Syringe) 10 ml FLUSH ASDIRECTED PRN PRN Reason: Keep Vein Open Last Admin: 04/16/21 12:16 Dose: 10 ml Documented by: Sodium Chloride (Sodium Chloride 0.9% 2.5 Ml Syringe) 2.5 ml FLUSH ASDIRECTED PRN PRN Reason: Keep Vein Open Last Admin: 04/16/21 12:16 Dose: 2.5 ml Documented by: Discontinued Medications Acetaminophen (Acetaminophen 325 Mg Tab) 650 mg PO NOW ONE Stop: 04/16/21 13:13 Last Admin: 04/16/21 13:15 Dose: Not Given Documented by: Bupivacaine HCl (Bupivacaine 0.25% 10 Ml Sdv) Confirm Administered Dose 10 ml .ROUTE .STK-MED ONE Stop: 04/16/21 15:30 Diphenhydramine HCl (Diphenhydramine 50 Mg/Ml Sdv) 25 mg IVPUSH ONETIME ONE Stop: 04/16/21 13:12 Last Admin: 04/16/21 13:15 Dose: Not Given Documented by: Fentanyl (Fentanyl 100 Mcg/2 Ml Sdv) Confirm Administered Dose 100 mcg .ROUTE .STK-MED ONE Stop: 04/16/21 15:23 Hydromorphone HCl (Hydromorphone 2 Mg/Ml Syringe) Confirm Administered Dose 2 mg .ROUTE .STK-MED ONE Stop: 04/16/21 16:27 Sodium Chloride (Normal Saline) 1,000 mls @ 1,000 mls/hr IV .Bolus ONE Stop: 04/16/21 13:07 Last Admin: 04/16/21 12:14 Dose: 1,000 mls/hr Documented by: Iopamidol (Iopamidol 755 Mg/Ml 500 Ml Multipack Bottle) 75 ml IVPUSH ONETIME ONE Stop: 04/16/21 15:18 Last Admin: 04/16/21 15:17 Dose: 75 ml Documented by: Lidocaine HCl (Lidocaine 2% 100 Mg/5 Ml Syringe) Confirm Administered Dose 100 mg .ROUTE .STK-MED ONE Stop: 04/16/21 15:23 Methylprednisolone Sodium Succinate (Methylprednisolone Sodium Succinate 125 Mg/2 Ml Sdv) 125 mg IVPUSH ONETIME ONE Stop: 04/16/21 13:13 Last Admin: 04/16/21 13:15 Dose: Not Given Documented by: Metoclopramide HCl (Metoclopramide 10 Mg/2 Ml Sdv) 10 mg IVPUSH ONETIME ONE Stop: 04/16/21 13:12 Last Admin: 04/16/21 13:15 Dose: Not Given Documented by: Morphine Sulfate (Morphine 4 Mg/Ml Syringe) Confirm Administered Dose 4 mg .ROUTE .STK-MED ONE Stop: 04/16/21 16:03 Ondansetron HCl (Ondansetron 4 Mg/2 Ml Sdv) Confirm Administered Dose 4 mg .ROUTE .STK-MED ONE Stop: 04/16/21 15:27 Propofol (Propofol 200 Mg/20 Ml Sdv) Confirm Administered Dose 200 mg .ROUTE .STK-MED ONE Stop: 04/16/21 15:22
--- NOTE | 2021-04-16 16:42 | PCM.OPNOTE ---
- General Post-Op/Procedure Note Date of Surgery/Procedure: 04/16/21 Operative Procedure(s): evacuation of vaginal cuff hematoma Findings: dark blood draining from cuff, cuff intact, 150 ml of dark blood removed from pelvis, no purulent drainage identified. Pre Op Diagnosis: vaginal cuff hematoma vs abscess Post-Op Diagnosis: vaginal cuff hematoma. Anesthesia Technique: General LMA Primary Surgeon: Molly Katz Anesthesia Provider: Bren Kimbrough Pathology: aerobic and anaerobic cultures, gram stain. Fluid Replacement, Intraop: 1,000 EBL in mLs: 150 (old blood) Surgical Drain/Tube Type: Chong Hussein Drain Complications: None known Condition: Good
--- NOTE | 2021-04-16 17:08 | OR ---
SURGEON: Molly Katz M.D. DATE OF PROCEDURE: 04/16/2021 PREOPERATIVE DIAGNOSIS: Vaginal cuff hematoma versus abscess. POSTOPERATIVE DIAGNOSIS: Vaginal cuff hematoma. PROCEDURE: Evacuation of vaginal cuff hematoma. PRIMARY SURGEON: Molly Katz M.D. ANESTHESIA: General LMA. ESTIMATED BLOOD LOSS: 150 mL, evacuated. COMPLICATIONS: None known. DISPOSITION: Stable to Recovery. INTRAVENOUS FLUIDS: 1000 mL normal saline. SPECIMENS: Aerobic and anaerobic culture, and Gram stain. BRIEF HISTORY: This is a 35-year-old female. She is postop day #12 from a laparoscopically assisted vaginal hysterectomy, bilateral salpingectomy, and cystoscopy. She has had an uneventful postop course. However, over the last three to four days, she has developed more pelvic pressure and discomfort and she began to notice vaginal bleeding and was very concerned, presented to the emergency room where she had a normal hemoglobin of 13.5, a slightly elevated white blood cell count of 16.1 with no left shift, and due to the elevated white count, I did recommend proceeding with CT which indicated that there was a 5 cm pelvic abscess. She was consented then for evacuation through a vaginal route versus transfer for Interventional Radiology drainage. She desired to proceed with vaginal drainage of the cuff hematoma. She was started on Zosyn and metronidazole. She was consented with risks discussed including bleeding; infection; injury to bowel, bladder, blood vessels, ureters, or other organs; risk of thromboembolic event; risk of anesthesia. Understanding all these risks, she does desire to proceed. DESCRIPTION OF PROCEDURE: With the patient in dorsal lithotomy position, under adequate LMA analgesia, the perineum and vagina were prepped with Betadine and draped in usual fashion for vaginal surgery. SCDs were in place, and she had received metronidazole and Zosyn preoperatively. Additionally, the bladder had been drained. Bimanual examination revealed a smooth mass at the vaginal cuff. A speculum was placed in the vagina and there was a slight separation at the cuff where blood was protruding. I did retract this slightly with an Allis clamp and I was able to place a suction cannula into the lower pelvis and approximately 100 mL of clot was obtained. I then performed a bimanual examination. I did place my finger through the cuff and was able to break up more clot and remove additional clot. With this completed, there appeared to be no more fluid clot. There was still some firm clot that I could not break up. Therefore, three [id number] sutures were placed of 0 Vicryl for support of the cuff to ensure that it was well approximated, and a flat 7 mm Chong-Hussein drain was placed to closed suction and secured tightly to the leg. Final sponge, needle, and instrument counts were reported as correct. There were no known complications. The patient was transferred to Recovery in good condition. TANNER / ARIANE /[id number]
[2021-04-16] MEDS: metroNIDAZOLE/Normal Saline 500 MG in Premix Bag 1 BAG IV SCH ×2 (17:56→23:36)
[2021-04-16] MEDS: Piperacillin/Tazobactam 3.375 GM in Sodium Chloride 0.9% 50 ML IV SCH ×2 (17:56→21:25)
--- NOTE | 2021-04-16 19:08 | CONS ---
DATE OF CONSULTATION: 04/16/2021 DATE OF : 1985 PRIMARY CARE PHYSICIAN: Cheryl Fung, DUANE, DATA INTEGRITY SPECIALIST- CHIEF COMPLAINT: Vaginal bleeding. HISTORY: This is a 35-year-old female. She is 12 days postop from a laparoscopically- assisted vaginal hysterectomy with bilateral salpingectomy without complications, and she presents to the emergency room with a concern of vaginal bleeding. She states that she has been filling a pad per hour for a couple of hours. She has also had pelvic pain and pressure over the last few days. She was evaluated in the ED and her vitals were stable. She had minimal vaginal bleeding. Her hemoglobin was 13; however, due to an elevated white blood cell count, I did request that they proceed with a CT, which showed a cuff fluid collection with some ring enhancement suggesting cuff abscess, and she denies fever, chills, nausea, vomiting at home. Her main complaint is the pelvic pressure and vaginal bleeding. PAST MEDICAL HISTORY: Significant for anemia secondary to uterine bleeding, asthma, migraine headaches. PAST SURGICAL HISTORY: Laparoscopically-assisted vaginal hysterectomy. ALLERGIES: None known. OBSTETRIC HISTORY: She is G1, P1, with a delivery of a 5-pound 3-ounce female in 2010. MEDICATIONS: ProAir inhaler 2 puffs q.4 to 6 hours, Singulair 10 mg orally once a day, zolpidem 10 mg p.r.n. at bedtime, fluocinolone cream apply topically for eczema as needed, Fioricet with Codeine as needed for headache, escitalopram 20 mg orally once a day, Wellbutrin XL 300 mg daily, Emgality prefilled pen 120 mg/mL as directed subcu once a month, alprazolam 0.5 mg one p.o. b.i.d. p.r.n., azelastine ophthalmic solution 1 drop in each affected eye 2 times per day. FAMILY HISTORY: Significant for mother alive with endometriosis. Father unknown. Sibling alive with hysterectomy. No other significant family history. SOCIAL HISTORY: She denies use of tobacco or street drugs. She is sexually active. She drinks occasionally. 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 GYNECOLOGIC HISTORY: Last Pap was in March of 2021 and was normal. She has no history of abnormal Pap smears. REVIEW OF SYSTEMS: Negative for headache, visual changes, cough, shortness of breath, chest pain, dyspnea on exertion, palpitation, nausea, vomiting, diarrhea. She does have abdominal pressure and pain as described in HPI. No new rashes. No arthralgias. No change in mood. PHYSICAL EXAMINATION: VITAL SIGNS: Temperature is 96.1, pulse is 80, blood pressure 118/66, O2 saturation is 99%. GENERAL: She is alert and oriented. She appears in no acute distress. NECK: Supple without lymphadenopathy or thyromegaly. LUNGS: Clear bilaterally. CV: Regular rate without murmur. ABDOMEN: Soft, nontender, nondistended. No rebound. No guarding. She has no CVA tenderness. EXTREMITIES: Show trace edema. VAGINAL: There is a small amount of dark red blood from the cuff. On bimanual examination, there is a fullness at the cuff approximately 6 cm in diameter. LABORATORY STUDIES: Include white blood cell count of 16.1, hemoglobin 13.5, hematocrit 39.5, platelet count 565,000, neutrophils 78, lymphocytes 11, monos 9, eos 1, basos 2. INR is 1.06. Sodium 136, potassium 4.5, chloride 98, CO2 of 27.9, BUN 7, creatinine 1.1, glucose 98, calcium 8.8. AST 17, ALT 19, alkaline phosphatase 95, albumin 3.5, globulin 0.9. CT report shows a 10 x 6 x 5 cm fluid collection in the cul-de-sac with enhancing rim consistent with a pelvic abscess. Unremarkable urinary bladder. Visualized GI tract is within normal limits. ASSESSMENT AND PLAN: Postoperative cuff hematoma versus abscess. Based on the exam vaginally, I suspect that this is a hematoma that is beginning to get infected. I did offer an incision and drainage of the vaginal cuff hematoma versus abscess locally under general anesthetic with risks including bleeding; infection; injury to bowel, bladder, blood vessels, ureters, or other organs; risk of thromboembolic event; and I would admit her on IV antibiotics, follow white blood cell count and anticipate continuing IV antibiotics until 24 to 48 hours postop. Alternatively, this could be drained with a CT-guided drainage with Interventional Radiology, which is not accessible locally. If that were her choice, I would have her present as a direct admit to a hospital with Interventional Radiology with IV antibiotics and CT-guided drainage. She is considering her options at this point, and will let me know which plan she prefers. TANNER THAKKAR /[id number]
[2021-04-17] MEDS: Piperacillin/Tazobactam 3.375 GM in Sodium Chloride 0.9% 50 ML IV SCH ×4 (03:30→21:13)
[2021-04-17] MEDS: metroNIDAZOLE/Normal Saline 500 MG in Premix Bag 1 BAG IV SCH ×2 (07:49→15:49)
[2021-04-17] MEDS ORDERED: Acetaminophen 500 MG Tab PO PRN (09:27)
--- NOTE | 2021-04-17 09:48 | PCM.SURGPN ---
- General Info Date of Service: 04/17/21 POD#: 1 Post-Op Diagnosis: pelvic hematoma Functional Status: Reports: Pain Controlled, Tolerating Diet, Ambulating, Urinating - Review of Systems General: Reports: No Symptoms HEENT: Reports: No Symptoms Pulmonary: Reports: No Symptoms Cardiovascular: Reports: No Symptoms Gastrointestinal: Reports: No Symptoms Genitourinary: Reports: No Symptoms Musculoskeletal: Reports: Back Pain Skin: Reports: No Symptoms Neurological: Reports: No Symptoms Psychiatric: Reports: No Symptoms - Patient Data Vitals - Most Recent: Last Vital Signs Temp 36.7 C 04/17/21 07:44 Pulse 73 04/17/21 07:44 Resp 18 04/17/21 07:44 BP 117/71 04/17/21 07:44 Pulse Ox 97 04/17/21 07:44 Orthostatic Blood Pressure [ 122/82 Standing] Orthostatic Blood Pressure [ 126/88 Sitting] Orthostatic Blood Pressure [ 116/80 Supine] Weight - Most Recent: 64.41 kg I&O - Last 24 Hours: Intake & Output 04/16/21 04/17/21 04/17/21 22:59 06:59 14:59 Intake Total 2100 Output Total 475 12 Balance 1625 -12 Lab Results Last 24 Hrs: Laboratory Results - last 24 hr 04/16/21 04/16/21 04/16/21 Range/Units 12:03 12:03 12:03 WBC 16.13 H (4.0-11.0) K/uL RBC 4.28 L (4.30-5.90) M/uL Hgb 13.5 (12.0-16.0) g/dL Hct 39.8 (36.0-46.0) % MCV 93.0 (80.0-98.0) fL MCH 31.5 (27.0-32.0) pg MCHC 33.9 (31.0-37.0) g/dL RDW Std Deviation 42.3 (28.0-62.0) fl RDW Coeff of Maddi 13 (11.0-15.0) % Plt Count 565 H (150-400) K/uL MPV 9.10 (7.40-12.00) fL Neut % (Auto) 78.4 (48.0-80.0) % Lymph % (Auto) 11.0 L (16.0-40.0) % Newton % (Auto) 9.3 (0.0-15.0) % Eos % (Auto) 1.1 (0.0-7.0) % Baso % (Auto) 0.2 (0.0-1.5) % Neut # (Auto) 12.6 H (1.4-5.7) K/uL Lymph # (Auto) 1.8 (0.6-2.4) K/uL Newton # (Auto) 1.5 H (0.0-0.8) K/uL Eos # (Auto) 0.2 (0.0-0.7) K/uL Baso # (Auto) 0.0 (0.0-0.1) K/uL Nucleated RBC % 0.0 /100WBC Nucleated RBCs # 0 K/uL INR 1.06 APTT 28.2 (18.6-31.3) SEC Sodium 136 (136-145) mmol/L Potassium 4.5 (3.5-5.1) mmol/L Chloride 98 (98-107) mmol/L Carbon Dioxide 27.9 (21.0-32.0) mmol/L BUN 7 (7.0-18.0) mg/dL Creatinine 1.1 H (0.6-1.0) mg/dL Est Cr Clr Drug Dosing 62.23 mL/min Estimated GFR (MDRD) 56.9 ml/min Glucose 98 (74-106) mg/dL Calcium 8.8 (8.5-10.1) mg/dL Total Bilirubin 0.8 (0.2-1.0) mg/dL AST 17 (15-37) IU/L ALT 19 (14-63) IU/L Alkaline Phosphatase 95 (46-116) U/L Total Protein 7.5 (6.4-8.2) g/dL Albumin 3.5 (3.4-5.0) g/dL Globulin 4.0 (2.6-4.0) g/dL Albumin/Globulin Ratio 0.9 (0.9-1.6) SARS-CoV-2 RNA (LISETH) (NEGATIVE) Blood Type Antibody Screen 04/16/21 04/16/21 04/17/21 Range/Units 12:25 14:00 06:55 WBC 12.54 H (4.0-11.0) K/uL RBC 3.66 L (4.30-5.90) M/uL Hgb 11.3 L (12.0-16.0) g/dL Hct 34.2 L (36.0-46.0) % MCV 93.4 (80.0-98.0) fL MCH 30.9 (27.0-32.0) pg MCHC 33.0 (31.0-37.0) g/dL RDW Std Deviation 42.5 (28.0-62.0) fl RDW Coeff of Maddi 13 (11.0-15.0) % Plt Count 494 H (150-400) K/uL MPV 9.30 (7.40-12.00) fL Neut % (Auto) 81.0 H (48.0-80.0) % Lymph % (Auto) 9.3 L (16.0-40.0) % Newton % (Auto) 8.5 (0.0-15.0) % Eos % (Auto) 1.0 (0.0-7.0) % Baso % (Auto) 0.2 (0.0-1.5) % Neut # (Auto) 10.2 H (1.4-5.7) K/uL Lymph # (Auto) 1.2 (0.6-2.4) K/uL Newton # (Auto) 1.1 H (0.0-0.8) K/uL Eos # (Auto) 0.1 (0.0-0.7) K/uL Baso # (Auto) 0.0 (0.0-0.1) K/uL Nucleated RBC % 0.0 /100WBC Nucleated RBCs # 0 K/uL INR APTT (18.6-31.3) SEC Sodium (136-145) mmol/L Potassium (3.5-5.1) mmol/L Chloride (98-107) mmol/L Carbon Dioxide (21.0-32.0) mmol/L BUN (7.0-18.0) mg/dL Creatinine (0.6-1.0) mg/dL Est Cr Clr Drug Dosing mL/min Estimated GFR (MDRD) ml/min Glucose (74-106) mg/dL Calcium (8.5-10.1) mg/dL Total Bilirubin (0.2-1.0) mg/dL AST (15-37) IU/L ALT (14-63) IU/L Alkaline Phosphatase (46-116) U/L Total Protein (6.4-8.2) g/dL Albumin (3.4-5.0) g/dL Globulin (2.6-4.0) g/dL Albumin/Globulin Ratio (0.9-1.6) SARS-CoV-2 RNA (LISETH) NEGATIVE (NEGATIVE) Blood Type B POSITIVE Antibody Screen NEGATIVE Med Orders - Current: Current Medications Acetaminophen (Acetaminophen 500 Mg Tab) 500 mg PO Q6H PRN PRN Reason: Pain Piperacillin Sod/Tazobactam (Sod 3.375 gm/ Sodium Chloride) 50 mls @ 100 mls/hr IV Q6H [facility] Last Admin: 04/17/21 03:30 Dose: 100 mls/hr Documented by: Metronidazole 500 mg/ Premix 100 mls @ 100 mls/hr IV Q8H [facility] Last Admin: 04/17/21 07:49 Dose: 100 mls/hr Documented by: Sodium Chloride (Sodium Chloride 0.9% 10 Ml Syringe) 10 ml FLUSH ASDIRECTED PRN PRN Reason: Keep Vein Open Last Admin: 04/16/21 12:16 Dose: 10 ml Documented by: Sodium Chloride (Sodium Chloride 0.9% 2.5 Ml Syringe) 2.5 ml FLUSH ASDIRECTED PRN PRN Reason: Keep Vein Open Last Admin: 04/16/21 12:16 Dose: 2.5 ml Documented by: Sodium Chloride (Sodium Chloride 0.9% 10 Ml Syringe) 10 ml FLUSH ASDIRECTED PRN PRN Reason: Keep Vein Open Sodium Chloride (Sodium Chloride 0.9% 2.5 Ml Syringe) 2.5 ml FLUSH ASDIRECTED PRN PRN Reason: Keep Vein Open Discontinued Medications Acetaminophen (Acetaminophen 325 Mg Tab) 650 mg PO NOW ONE Stop: 04/16/21 13:13 Last Admin: 04/16/21 13:15 Dose: Not Given Documented by: Bupivacaine HCl (Bupivacaine 0.25% 10 Ml Sdv) Confirm Administered Dose 10 ml .ROUTE .STK-MED ONE Stop: 04/16/21 15:30 Diphenhydramine HCl (Diphenhydramine 50 Mg/Ml Sdv) 25 mg IVPUSH ONETIME ONE Stop: 04/16/21 13:12 Last Admin: 04/16/21 13:15 Dose: Not Given Documented by: Fentanyl (Fentanyl 100 Mcg/2 Ml Sdv) Confirm Administered Dose 100 mcg .ROUTE .STK-MED ONE Stop: 04/16/21 15:23 Hydromorphone HCl (Hydromorphone 2 Mg/Ml Syringe) Confirm Administered Dose 2 mg .ROUTE .STK-MED ONE Stop: 04/16/21 16:27 Sodium Chloride (Normal Saline) 1,000 mls @ 1,000 mls/hr IV .Bolus ONE Stop: 04/16/21 13:07 Last Admin: 04/16/21 12:14 Dose: 1,000 mls/hr Documented by: Iopamidol (Iopamidol 755 Mg/Ml 500 Ml Multipack Bottle) 75 ml IVPUSH ONETIME ONE Stop: 04/16/21 15:18 Last Admin: 04/16/21 15:17 Dose: 75 ml Documented by: Lidocaine HCl (Lidocaine 2% 100 Mg/5 Ml Syringe) Confirm Administered Dose 100 mg .ROUTE .STK-MED ONE Stop: 04/16/21 15:23 Methylprednisolone Sodium Succinate (Methylprednisolone Sodium Succinate 125 Mg/2 Ml Sdv) 125 mg IVPUSH ONETIME ONE Stop: 04/16/21 13:13 Last Admin: 04/16/21 13:15 Dose: Not Given Documented by: Metoclopramide HCl (Metoclopramide 10 Mg/2 Ml Sdv) 10 mg IVPUSH ONETIME ONE Stop: 04/16/21 13:12 Last Admin: 04/16/21 13:15 Dose: Not Given Documented by: Morphine Sulfate (Morphine 4 Mg/Ml Syringe) Confirm Administered Dose 4 mg .ROUTE .STK-MED ONE Stop: 04/16/21 16:03 Ondansetron HCl (Ondansetron 4 Mg/2 Ml Sdv) Confirm Administered Dose 4 mg .ROUTE .STK-MED ONE Stop: 04/16/21 15:27 Propofol (Propofol 200 Mg/20 Ml Sdv) Confirm Administered Dose 200 mg .ROUTE .STK-MED ONE Stop: 04/16/21 15:22 - Exam General: Alert, Oriented Neck: Supple Lungs: Normal Respiratory Effort GI/Abdominal Exam: Soft, Non-Tender, No Distention Extremities: Non-Tender, No Pedal Edema Skin: Warm, Dry, Intact Neurological: No New Focal Deficit Psy/Mental Status: Alert, Normal Affect, Normal Mood Sepsis Event Note - Evaluation Sepsis Screening Result: No Definite Risk - Focused Exam Vital Signs: Vital Signs Temp Pulse Resp BP Pulse Ox 04/17/21 07:44 36.7 C 73 18 117/71 97 04/17/21 04:00 37.1 C 84 18 109/49 L 94 L 04/17/21 00:00 36.7 C 75 16 98/59 L 95 04/16/21 22:31 78 16 118/75 98 - Problem List & Annotations (1) Post-op bleeding SNOMED Code(s): 881056276 Code(s): QWB1740 - Status: Acute Current Visit: Yes - Problem List Review Problem List Initiated/Reviewed/Updated: Yes - My Orders Last 24 Hours: Active Orders 24 hr Category Date Time Status Admission Status [Patient Status] [ADT] Stat ADT 04/16/21 14:49 Active Communication Order [RC] STAT Care 04/16/21 12:45 Active Ready for Discharge [RC] PER UNIT ROUTINE Care 04/17/21 09:22 Active Regular Diet [DIET] Diet 04/16/21 Dinner Active CULTURE, ANAEROBE & AEROBE [MREF] Routine Lab 04/16/21 16:05 Received Acetaminophen [Tylenol Extra Strength] Med 04/17/21 09:27 Ordered 500 mg PO Q6H PRN Piperacillin/Tazobactam [Piperacil-Tazobact] 3.375 gm Med 04/16/21 15:15 Active Sodium Chloride 0.9% [Normal Saline] 50 ml IV Q6H Sodium Chloride 0.9% [Saline Flush] Med 04/16/21 12:08 Active 10 ml FLUSH ASDIRECTED PRN Sodium Chloride 0.9% [Saline Flush] Med 04/16/21 16:42 Active 10 ml FLUSH ASDIRECTED PRN Sodium Chloride 0.9% [Saline Flush] Med 04/16/21 12:08 Active 2.5 ml FLUSH ASDIRECTED PRN Sodium Chloride 0.9% [Saline Flush] Med 04/16/21 16:42 Active 2.5 ml FLUSH ASDIRECTED PRN metroNIDAZOLE/Normal Saline [Flagyl in NS 500 MG/100 ML Med 04/16/21 15:45 Active ] 500 mg Premix Bag 1 bag IV Q8H Convert IV to Saline Lock [OM.PC] Routine Oth 04/16/21 16:42 Ordered Document Drain Output [OM.PC] Routine Oth 04/16/21 16:43 Ordered Saline Lock Insert [OM.PC] Stat Ot 04/16/21 12:08 Ordered Medication Orders Acetaminophen (Acetaminophen 500 Mg Tab) 500 mg PO Q6H PRN PRN Reason: Pain Piperacillin Sod/Tazobactam (Sod 3.375 gm/ Sodium Chloride) 50 mls @ 100 mls/hr IV Q6H [facility] Last Admin: 04/17/21 03:30 Dose: 100 mls/hr Documented by: Infusion: 04/16/21 21:55 Dose: 100 mls/hr Documented by: Admin: 04/16/21 21:25 Dose: 100 mls/hr Documented by: Admin: 04/16/21 17:56 Dose: Not Given Documented by: CHRISTIAN Metronidazole 500 mg/ Premix 100 mls @ 100 mls/hr IV Q8H [facility] Last Admin: 04/17/21 07:49 Dose: 100 mls/hr Documented by: Infusion: 04/17/21 00:36 Dose: 100 mls/hr Documented by: Admin: 04/16/21 23:36 Dose: 100 mls/hr Documented by: Admin: 04/16/21 17:56 Dose: Not Given Documented by: CHRISTIAN Sodium Chloride (Sodium Chloride 0.9% 10 Ml Syringe) 10 ml FLUSH ASDIRECTED PRN PRN Reason: Keep Vein Open Last Admin: 04/16/21 12:16 Dose: 10 ml Documented by: CASPER Sodium Chloride (Sodium Chloride 0.9% 2.5 Ml Syringe) 2.5 ml FLUSH ASDIRECTED PRN PRN Reason: Keep Vein Open Last Admin: 04/16/21 12:16 Dose: 2.5 ml Documented by: CASPER Sodium Chloride (Sodium Chloride 0.9% 10 Ml Syringe) 10 ml FLUSH ASDIRECTED PRN PRN Reason: Keep Vein Open Sodium Chloride (Sodium Chloride 0.9% 2.5 Ml Syringe) 2.5 ml FLUSH ASDIRECTED PRN PRN Reason: Keep Vein Open - Assessment Assessment (Free Text/Narrative):: POD1 after evacuation of pelvic hematoma. Approximately 40 ml from drain since surgery. WBC is improved and she remained afebrile. No sign of abscess at time of surgery. will complete full 24 hours of IV antibiotics and them home with additional 10 days of oral antibiotics. May use heating pad and tylenol for back pain.
[2021-04-17] MEDS ORDERED: Docusate Sodium 100 MG Cap PO SCH (17:15)
== END 2021-04-17 22:10 | disposition home or self-care (01) ==
LOC: MW.ED 11:18 → MW.SDS 15:10 → MW.OB 15:11 → UNDOADMOB 16:37
PROVIDERS: ADMIT Obstetrics & Gynecology; ATTEND Obstetrics & Gynecology
DX: N99.840 Postprocedural hematoma of a genitourinary system organ or structure following a genitourinary system procedure (principal); J45.909 Unspecified asthma, uncomplicated; F17.210 Nicotine dependence, cigarettes, uncomplicated; G43.909 Migraine, unspecified, not intractable, without status migrainosus; Z98.890 Other specified postprocedural states; Z01.812 Encounter for preprocedural laboratory examination; Z20.822 Contact with and (suspected) exposure to COVID-19
CPT/HCPCS: 10140; 36415; 72193; 80053; 85025; 85610; 85730; 86850; 86900; 86901; 87070; 87075; 87077; 87186; 87205; 87635; 99285; A9270; G0378; J1170; J2270; J2405; J2543; J2704; J3010; J3490; J7030; Q9967; 00942; 99284; U0002